=== PATIENT | female | born 1980 | race Caucasian/White ===

== ENCOUNTER 2017-03-05 11:18 | Emergency (ER) | payer OTHER ==
[~2017-03-05] VITALS: Ht 170.2 cm; Wt 70.0 kg
[2017-03-05 11:20] VITALS: BP 118/70; PULSE 71; RESP 16; TEMP 98.6; O2SAT 95
--- NOTE | 2017-03-05 13:27 | PD ---
HPI Chief Complaint: Injury Time Seen by Provider: 13:26 Travel History International Travel<30 days: No Contact w/Intl Traveler<30days: No Traveled to known affect area: No History of Present Illness HPI 36-year-old female presents to emergency Department with complaint of right hand pain at the thenar eminence area and right wrist pain after shutting it in a car door this morning. Denies paresthesias, loss of sensation to the affected extremity. Reports decreased full extension of the right thumb secondary to pain. Reports bruising to the palmar aspect of the thenar eminence. Has not taken any medication or tried any treatments to alleviate her symptoms. Symptoms are moderate in severity. Pain is aggravated with movement and palpation. No known allergies. Has no medical complaints. No other modifying factors or associated signs and symptoms. PFSH Past Medical History ?: Not Social History Tobacco Use: No Allergies-Medications (Allergen,Severity, Reaction): Coded Allergies: No Known Allergies (Unverified , 03/05/17) Reported Meds & Prescriptions Reported Meds & Active Scripts Active Ibuprofen 800 Mg Tab 800 Mg PO Q6HR PRN Review of Systems Except as stated in HPI: all other systems reviewed are Neg Physical Exam Narrative GENERAL: Well-nourished, well-developed female patient, in no acute distress SKIN: Warm and dry. HEAD: Atraumatic. Normocephalic. EYES: Pupils equal and round. No scleral icterus. No injection or drainage. ENT: Mucosa pink and moist. Airway patent. NECK: Trachea midline. CARDIOVASCULAR: Regular rate. RESPIRATORY: No accessory muscle use. GASTROINTESTINAL: Flat. MUSCULOSKELETAL: Right wrist with tenderness on palpation; no erythema ; no edema; no ecchymosis; no obvious deformity. Right hand with tenderness on palpation and some mild ecchymosis noted to the palm are aspect of the thenar eminence; all fingers with sensory intact; thumb with limited extension; no obvious deformities. Right upper extremity is supple and non-tense with 2+ radial pulse and sensory intact. No obvious deformities. No clubbing. No cyanosis. NEUROLOGICAL: Awake and alert. Oriented 3. No obvious cranial nerve deficits. Motor grossly within normal limits. Normal speech. PSYCHIATRIC: Appropriate mood and affect; insight and judgment normal. Data Data Last Documented VS Vital Signs Date Time Temp Pulse Resp B/P (MAP) Pulse Ox O2 Delivery O2 Flow Rate FiO2 03/05/17 11:20 98.6 71 16 118/70 (86) 95 Orders Orders Ibuprofen (Motrin) (03/05/17 13:30) Hand, Complete ([id number]) (03/05/17 13:26) Wrist, Complete ([id number]) (03/05/17 13:26) Splint Or Brace Apply/Monitor (03/05/17 14:25) [facility] Medical Decision Making Medical Screen Exam Complete: Yes Emergency Medical Condition: Yes Medical Record Reviewed: Yes Differential Diagnosis Fracture, sprain, contusion Narrative Course 36-year-old female with right hand and wrist injury. Ibuprofen administered in the ER. Right hand and right wrist x-ray ordered. 1426: Right hand and wrist x-ray with no acute findings. Findings discussed with the patient. Velcro wrist splint provided for support. Ibuprofen prescribed for home. Instructed patient to follow up with primary care provider. Patient verbalizes understanding and agreement with treatment plan. Patient is medically cleared and stable for discharge. Discussed reasons to return to the emergency department. Patient agrees with treatment plan. The patients vital signs are stable and the patient is stable for outpatient follow- up and treatment. Patient discharged home, stable and in no acute distress. Diagnosis Primary Impression: Right wrist injury Additional Impression: Injury of right hand Referrals: Primary Care Physician Patient Instructions: Contusion in Adults (ED), General Instructions, Hand Sprain (ED), Wrist Sprain (ED) Departure Forms: Tests/Procedures, Work Release Enter return to work date: Mar 06, 2017 Additional Instructions: Tylenol or ibuprofen as directed and as needed to reduce pain Rest, ice, compress, and elevate extremity to decrease pain and inflammation Anival wrap for support Splint for support Avoid aggravating activity; increase activity as tolerated Follow-up with primary care provider Return to the emergency department immediately with worsening symptoms Med/Other Pt SpecificInfo: Prescription(s) given Scripts Ibuprofen (Ibuprofen) 800 Mg Tab 800 MG PO Q6HR Y for PAIN, #40 TAB 0 Refills Prov: Judy Weir 03/05/17 Disposition: 01 DISCHARGE HOME Condition: Stable Judy Weir Mar 05, 2017 13:27
[2017-03-05] MEDS ORDERED: IBUPROFEN 800 MG TAB PO ONE (13:30)
--- NOTE | 2017-03-05 14:01 | RADRPT ---
EXAM DATE/TIME: 03/05/2017 13:45 [facility] COMPARISON: No previous studies available for comparison. INDICATIONS : Right hand pain, closed in car door. MEDICAL HISTORY : None. SURGICAL HISTORY : None. ENCOUNTER: Initial ACUITY: 1 day PAIN SCORE: 7/10 LOCATION: Right hand, first digit. FINDINGS: Three view examination of the right hand demonstrates no soft tissue swelling, dislocation, or fractu re. The carpal bones appear intact. The interphalangeal and metacarpophalangeal joints are intact. Bony mineralization is normal. CONCLUSION: 1. No acute fracture identified. Polo Noland MD on March 05, 2017 at 13:59 Board Certified Radiologist. This report was verified electronically.
[2017-03-05] MEDS ORDERED: IBUP800T23 PO (14:15)
--- NOTE | 2017-03-05 14:18 | RADRPT ---
EXAM DATE/TIME: 03/05/2017 13:47 [facility] COMPARISON: HAND RIGHT COMPLETE ([id number]), March 05, 2017, 13:45. INDICATIONS : Right wrist pain, closed in car door. MEDICAL HISTORY : None. SURGICAL HISTORY : None. ENCOUNTER: Initial ACUITY: 1 day PAIN SCORE: 7/10 LOCATION: Right proximal wrist FINDINGS: Three view examination of the right wrist demonstrates no soft tissue swelling, dislocation, or fract ure. The carpal bones are in normal alignment. The joint spaces are maintained. Bony mineralizatio n is normal. CONCLUSION: 1. No acute bony abnormality identified. Polo Noland MD on March 05, 2017 at 14:00 Board Certified Radiologist. This report was verified electronically.
== END 2017-03-05 14:37 | disposition home or self-care (01) ==
LOC: NEPK 11:18
DX: S69.91XA Unspecified injury of right wrist, hand and finger(s), initial encounter (principal); W23.0XXA Caught, crushed, jammed, or pinched between moving objects, initial encounter
CPT/HCPCS: 73110; 73130; 99283; L3908